=== PATIENT | male | born 1935 | race Caucasian/White ===

== ENCOUNTER → 2017-06-22 18:24 | Outpatient (CLI) | payer MEDICARE, SELFPAY ==
--- NOTE | 2017-06-22 15:00 | LES_PTH ---
PATIENT: RYAN FLOOD LOC: [facility] U#:[id number] AGE/SX: 89/M ROOM: RE06/22/[address]: Dr. Kostas Silverman MD : 1935 BED: DIS: SPEC #: [id number] RECD: 06/22/17 17:37 STATUS: ELVI KAREN #: [id number] MELISSA: 06/22/17 15:[address]: Kostas Silverman DEPT: SURGICAL PATHOLOGY RECD BY: Gilberto Posada Tissues: A - Skin of arm B - Skin of back, NOS Procedures: Surgery Specimen Level IV HEADER OPERATION: Right arm, suspicious tissue/lesion removal; suspicious back lesion removal PRE-OP DIAGNOSIS: Right arm, suspicious tissue/lesion; suspicious back lesion TISSUE SUBMITTED: A - Right arm lesion, B ? Back lesion MICROSCOPIC DIAGNOSIS A. Right arm lesion, excisional biopsy: Pigmented actinic keratosis with focal features of seborrheic keratosis. Solar elastosis. Negative for malignancy. B. Back lesion, excisional biopsy: Seborrheic keratosis with focal features of verrucous keratosis with superficial ulceration and associated inflammation. Negative for malignancy. ODESSA:reggie 06/24/17 MICROSCOPIC DESCRIPTION Slides are reviewed. GROSS DESCRIPTION A - Received in fixative is one container labeled with the patient's name and designated arm, right, lesion. The specimen consists of a piece of leyva-brown skin measuring 1 x 0.5 cm and up to 0.2 cm in thickness. The specimen is inked and submitted entirely in one cassette. It will be sectioned at the time of embedding. B - Received in fixative is one container labeled with the patient's name and designated back lesion. The specimen consists of a round piece of leyva-white skin measuring 0.5 cm in diameter and 0.2 cm in thickness. The specimen is inked and submitted entirely in one cassette. It will be bisected at the time of embedding. / ODESSA:reggie 06/23/17 TC:5 CPT: 59963 x2
== END ==
PROVIDERS: Family Provider Family Medicine; PCP Family Medicine; Visit Provider Family Medicine
DX: L98.9 Disorder of the skin and subcutaneous tissue, unspecified (principal)
CPT/HCPCS: 88305

== ENCOUNTER → 2017-08-25 11:27 | Outpatient (CLI) | payer MEDICARE, SELFPAY ==
[2017-08-25 12:57] LABS: AST(SGOT) 20 U/L (15-37); Alanine Aminotransfer ALT/SGPT 22 U/L (16-61); Albumin, Serum 3.6 g/dL (3.2-5.0); Alkaline Phosphatase 78 U/L (45-117); Bilirubin, Direct 0.17 mg/dL (0.00-0.30); Cholesterol 191 mg/dL (200); Globulin 3.7 g/dL (2.2-4.2); High Density Lipoprotein 30 mg/dL; Protein, Total 7.3 g/dL (6.4-8.2); Triglycerides 189 mg/dL; Very Low Density Lipoprotein 38 mg/dL (5-40)
== END ==
PROVIDERS: Family Provider Family Medicine; PCP Family Medicine; Visit Provider Internal Medicine Cardiovascular Disease
DX: I20.9 Angina pectoris, unspecified (principal); E78.5 Hyperlipidemia, unspecified
CPT/HCPCS: 36415; 80061; 80076

== ENCOUNTER → 2018-07-11 09:43 | Outpatient (CLI) | payer MEDICARE, SELFPAY ==
[2018-07-05 15:37] VITALS: BMI 29.7
[2018-07-11 12:33] LABS: AST(SGOT) 36 U/L (15-37); Alanine Aminotransfer ALT/SGPT 29 U/L (16-61); Albumin, Serum 3.8 g/dL (3.2-5.0); Alkaline Phosphatase 77 U/L (45-117); Anion Gap 12 (5-15); BUN 23 mg/dL (7-18); BUN/Creat Ratio 19.3 RATIO (10-20); Bilirubin, Direct 0.14 mg/dL (0.00-0.30); Calcium,Total 8.7 mg/dL (8.5-10.1); Chloride 99 mmol/L (98-107); Cholesterol 205 mg/dL (200); Creatinine, Serum 1.19 mg/dL (0.70-1.30); EST Glomerular Filtration Rate 62 mL/min (>60); Est Glom Filt Rate - Afr Amer 75 mL/min (>60); Globulin 3.9 g/dL (2.2-4.2); Glucose 154 mg/dL (74-106); High Density Lipoprotein 30 mg/dL; Potassium 3.3 mmol/L (3.5-5.1); Protein, Total 7.7 g/dL (6.4-8.2); Sodium Level 139 mmol/L (136-145); Thyroid Stim Hormone (TSH) 2.48 uIU/mL (0.358-3.74); Triglycerides 219 mg/dL; Very Low Density Lipoprotein 44 mg/dL (5-40)
== END ==
PROVIDERS: Family Provider Family Medicine; PCP Family Medicine; Referring Provider Internal Medicine Cardiovascular Disease; Visit Provider Internal Medicine Cardiovascular Disease
DX: Z00.00 Encounter for general adult medical examination without abnormal findings (principal); I10 Essential (primary) hypertension; E78.5 Hyperlipidemia, unspecified
CPT/HCPCS: 36415; 80048; 80061; 80076; 84443

== ENCOUNTER → 2019-06-25 08:35 | Outpatient (CLI) | payer MEDICARE, SELFPAY ==
[2019-01-04 11:11] VITALS: BMI 29.3
[2019-06-25 10:46] LABS: Anion Gap 7 (5-15); BUN 28 mg/dL (7-18); BUN/Creat Ratio 23.3 RATIO (10-20); Calcium,Total 8.9 mg/dL (8.5-10.1); Chloride 103 mmol/L (98-107); Cholesterol 189 mg/dL (200); EST Glomerular Filtration Rate 61 mL/min (>60); Est Glom Filt Rate - Afr Amer 74 mL/min (>60); Glucose 128 mg/dL (74-106); High Density Lipoprotein 30 mg/dL; PSA,Total - Annual Screen 0.11 ng/mL (0.00-4.00); Potassium 3.4 mmol/L (3.5-5.1); Sodium Level 139 mmol/L (136-145); Triglycerides 207 mg/dL; Very Low Density Lipoprotein 41 mg/dL (5-40)
== END ==
PROVIDERS: PCP Family Medicine; Referring Provider Family Medicine; Visit Provider Family Medicine
DX: Z00.00 Encounter for general adult medical examination without abnormal findings (principal); I10 Essential (primary) hypertension
CPT/HCPCS: 36415; 80048; 80061; 84153; G0103

== ENCOUNTER → 2019-12-18 09:32 | Outpatient (CLI) | payer MEDICARE, SELFPAY ==
[2019-01-04 11:11] VITALS: BMI 29.3
[2019-12-18 12:43] LABS: Anion Gap 5 (5-15); BUN 23 mg/dL (7-18); BUN/Creat Ratio 20.7 RATIO (10-20); Calcium,Total 8.9 mg/dL (8.5-10.1); Chloride 103 mmol/L (98-107); Creatinine, Serum 1.11 mg/dL (0.70-1.30); EST Glomerular Filtration Rate 67 mL/min (>60); Est Glom Filt Rate - Afr Amer 81 mL/min (>60); Glucose 129 mg/dL (74-106); Potassium 3.6 mmol/L (3.5-5.1); Sodium Level 139 mmol/L (136-145)
== END ==
PROVIDERS: PCP Family Medicine; Referring Provider Family Medicine; Visit Provider Family Medicine
DX: I10 Essential (primary) hypertension (principal)
CPT/HCPCS: 36415; 80048

== ENCOUNTER → 2020-06-19 12:15 | Outpatient (CLI) | payer MEDICARE, SELFPAY ==
[2020-02-01 09:50] VITALS: BMI 28.5
[2020-06-19 15:52] LABS: ALB/GLOB Ratio 1.1 RATIO (0.9-2.4); AST(SGOT) 21 U/L (15-37); Alanine Aminotransfer ALT/SGPT 23 U/L (16-61); Albumin, Serum 3.8 g/dL (3.2-5.0); Alkaline Phosphatase 74 U/L (45-117); Anion Gap 6 (5-15); BUN 24 mg/dL (7-18); BUN/Creat Ratio 20.7 RATIO (10-20); Calcium,Total 9.2 mg/dL (8.5-10.1); Chloride 103 mmol/L (98-107); Cholesterol 184 mg/dL (200); Creatinine, Serum 1.16 mg/dL (0.70-1.30); EST Glomerular Filtration Rate 64 mL/min (>60); Est Glom Filt Rate - Afr Amer 77 mL/min (>60); Globulin 3.5 g/dL (2.2-4.2); Glucose 111 mg/dL (74-106); High Density Lipoprotein 30 mg/dL; Potassium 3.5 mmol/L (3.5-5.1); Protein, Total 7.3 g/dL (6.4-8.2); Sodium Level 138 mmol/L (136-145); Triglycerides 201 mg/dL; Very Low Density Lipoprotein 40 mg/dL (5-40)
== END ==
PROVIDERS: PCP Family Medicine; Referring Provider Family Medicine; Visit Provider Family Medicine
DX: I10 Essential (primary) hypertension (principal)
CPT/HCPCS: 36415; 80053; 80061

== ENCOUNTER → 2020-12-15 11:35 | Outpatient (CLI) | payer MEDICARE, SELFPAY ==
[2020-02-01 09:50] VITALS: BMI 28.5
[2020-12-15 15:33] LABS: Anion Gap 6 (5-15); BUN 22 mg/dL (7-18); BUN/Creat Ratio 19.5 RATIO (10-20); Calcium,Total 9.3 mg/dL (8.5-10.1); Chloride 101 mmol/L (98-107); Cholesterol 177 mg/dL (200); Creatinine, Serum 1.13 mg/dL (0.70-1.30); EST Glomerular Filtration Rate 65 mL/min (>60); Est Glom Filt Rate - Afr Amer 79 mL/min (>60); Glucose 83 mg/dL (74-106); High Density Lipoprotein 27 mg/dL; Sodium Level 137 mmol/L (136-145); Triglycerides 253 mg/dL; Very Low Density Lipoprotein 51 mg/dL (5-40)
== END ==
PROVIDERS: PCP Family Medicine; Referring Provider Family Medicine; Visit Provider Family Medicine
DX: I10 Essential (primary) hypertension (principal)
CPT/HCPCS: 36415; 80048; 80061

== ENCOUNTER 2021-06-18 14:32 | Outpatient (CLI) | payer MEDICARE, SELFPAY ==
[2021-06-18 18:04] LABS: Anion Gap 6 (5-15); BUN 21 mg/dL (7-18); BUN/Creat Ratio 19.3 RATIO (10-20); Calcium,Total 8.9 mg/dL (8.5-10.1); Chloride 105 mmol/L (98-107); Creatinine, Serum 1.09 mg/dL (0.70-1.30); EST Glomerular Filtration Rate 68 mL/min (>60); Est Glom Filt Rate - Afr Amer 82 mL/min (>60); Glucose 100 mg/dL (74-106); Potassium 3.6 mmol/L (3.5-5.1); Sodium Level 138 mmol/L (136-145)
== END 2021-06-18 23:59 | disposition home or self-care (01) ==
LOC: MFPLAB 14:33
PROVIDERS: PCP Family Medicine; Referring Provider Family Medicine; Visit Provider Family Medicine
DX: I10 Essential (primary) hypertension (principal)
CPT/HCPCS: 36415; 80048

== ENCOUNTER → 2021-08-20 | Outpatient (CLI) | payer MEDICARE, SELFPAY ==
--- NOTE | 2021-08-20 09:32 | CDU_ITS ---
Reason For Study: bilateral bruit Rt. Velocities/BP Lt. Velocities/BP Prox CCA 61.7/9.5 cm/sec. Prox CCA 91.6/16.0 cm/sec. Mid CCA 56.5/12.1 cm/sec. Mid CCA 69.5/12.1 cm/sec. Dist CCA 56.5/10.8 cm/sec. Dist CCA 60.4/10.8 cm/sec. Prox ICA 59.1/14.7 cm/sec. Prox ICA 59.1/17.3 cm/sec. Mid ICA 56.5/17.3 cm/sec. Mid ICA 76.0/17.3 cm/sec. Dist ICA 59.1/17.3 cm/sec. Dist ICA 63.0/17.3 cm/sec. Rt. ICA/CCA = 1.0. Lt. ICA/CCA = 1.1. Prox ECA 98.2/6.9 cm/sec. Prox ECA 91.6/6.9 cm/sec. Rt. Vert. 38.2/9.5 cm/sec. Lt. Vert. 35.2/6.0 cm/sec. Right Extracranial There is homogeneous, smooth atherosclerotic plaque noted in the right common carotid artery. There is heterogeneous, irregular atherosclerotic plaque noted in the right internal carotid artery. There is heterogeneous, irregular atherosclerotic plaque noted in the right external carotid artery. Antegrade flow is noted in the right vertebral artery. Left Extracranial There is intimal thickening but no significant atherosclerotic plaque noted in the left common carotid artery. There is heterogeneous, irregular atherosclerotic plaque noted in the left internal carotid artery. There is heterogeneous, smooth atherosclerotic plaque noted in the left external carotid artery. Antegrade flow is noted in the left vertebral artery. Procedure Carotid Duplex 73960. This is a Carotid Duplex examination using B-mode, color flow and specral Doppler. The exam was diagnostic. Exam performed in department. VL/Carotid Duplex Ultrasound Interpretation Summary Irregular plaque at the proximal right internal carotid artery with less than 5 0% stenosis Less than 50% stenosis right external carotid artery Irregular plaque at the proximal left internal carotid artery with less than 50 % stenosis. Less than 50% stenosis left external carotid artery Patent antegrade vertebral arteries bilaterally Ordering Physician: Josseline Arroyo Performed By: Tariq Worthington RVT
== END | disposition home or self-care (01) ==
LOC: CVS 09:31
PROVIDERS: PCP Family Medicine; Referring Provider Physician Assistant Medical; Visit Provider Physician Assistant Medical
DX: R09.89 Other specified symptoms and signs involving the circulatory and respiratory systems (principal)
CPT/HCPCS: 93880

== ENCOUNTER → 2021-12-22 | Outpatient (CLI) | payer MEDICARE, SELFPAY ==
[2021-12-22 11:04] LABS: Anion Gap 7 (5-15); BUN 18 mg/dL (7-18); BUN/Creat Ratio 16.7 RATIO (10-20); Calcium,Total 8.7 mg/dL (8.5-10.1); Chloride 102 mmol/L (98-107); Cholesterol 186 mg/dL (200); Creatinine, Serum 1.08 mg/dL (0.70-1.30); EST Glomerular Filtration Rate 69 mL/min (>60); Est Glom Filt Rate - Afr Amer 83 mL/min (>60); Glucose 120 mg/dL (74-106); High Density Lipoprotein 30 mg/dL; Potassium 3.7 mmol/L (3.5-5.1); Sodium Level 137 mmol/L (136-145); Triglycerides 190 mg/dL; Very Low Density Lipoprotein 38 mg/dL (5-40)
== END | disposition home or self-care (01) ==
LOC: MFPLAB 09:08
PROVIDERS: PCP Family Medicine; Visit Provider Family Medicine
DX: I10 Essential (primary) hypertension (principal)
CPT/HCPCS: 36415; 80048; 80061

== ENCOUNTER → 2022-10-05 | Outpatient (CLI) | payer MEDICARE, SELFPAY ==
--- NOTE | 2022-10-05 11:46 | ART_ITS ---
Reason For Study: PAD Procedure A bilateral lower extremity continuous wave Doppler with analog waveform analysis,segmental pressures,and ankle brachial indexes with exercise. Left Segmental Pressures Left brachial= 120mmHg. Left posterior tibial artery = 139mmHg. Left dorsalis pedis artery = 136mmHg. Left digit = 94 mmHg. The left dorsalis pedis waveforms are triphasic. The left posterior tibial artery waveforms are triphasic. Right Segmental Pressures Right brachial= 112mmHg. Right posterior tibial artery = 125mmHg. Right dorsalis pedis artery = 121mmHg. Right digit = 59 mmHg. The right dorsalis pedis waveforms are triphasic. The right posterior tibial artery waveforms are biphasic. Indices The right ankle brachial index by the posterior tibial artery is 1.04. The right ankle brachial index by the dorsalis pedis is 1.01. The right digital-brachial index is .49. The right post exercise ankle brachial index is 1.07. The left ankle brachial index by the posterior tibial artery is 1.16. The left ankle brachial index by the dorsalis pedis is 1.13. The left digital-brachial index is .78. The left post exercise ankle brachial index is 1.35. VL/Lower Ext Art Exam w/ Exercise Interpretation Summary Biphasic and triphasic Doppler waveforms are noted at ankle level on the right. Triphasic Doppler waveforms are noted at ankle level on the left. Pulse-volume recordings appear diminished at digital level on the right, but satisfactory at all other levels bilaterally. Resting a nkle-brachial indices are normal bilaterally. The right digital-brachial index is moderately diminish ed. The left digital- brachial index is normal. The patient ambulated to tolerance on a treadmill wit h no incline for 2 minutes, following which ankle pressures augmented bilaterally, a normal physio logical response. Arterial flow appears normal at ankle level bilaterally, and at digital level o n the left. 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 Ordering Physician: Kostas Silverman Performed By: Tariq Worthington, RVT
== END | disposition home or self-care (01) ==
LOC: CVS 11:45
PROVIDERS: PCP Family Medicine; Referring Provider Family Medicine; Visit Provider Family Medicine
DX: I73.9 Peripheral vascular disease, unspecified (principal)
CPT/HCPCS: 93924

== ENCOUNTER → 2022-12-13 | Outpatient (CLI) | payer MEDICARE, SELFPAY ==
[2022-12-13 12:59] LABS: Anion Gap 6 (5-15); BUN 24 mg/dL (7-18); BUN/Creat Ratio 21.1 RATIO (10-20); Calcium,Total 9.5 mg/dL (8.5-10.1); Chloride 103 mmol/L (98-107); Cholesterol 170 mg/dL (200); Creatinine, Serum 1.14 mg/dL (0.70-1.30); EST Glomerular Filtration Rate 64 mL/min (>60); Est Glom Filt Rate - Afr Amer 78 mL/min (>60); Glucose 124 mg/dL (74-106); High Density Lipoprotein 31 mg/dL; Potassium 3.3 mmol/L (3.5-5.1); Sodium Level 138 mmol/L (136-145); Triglycerides 162 mg/dL; Very Low Density Lipoprotein 32 mg/dL (5-40)
== END | disposition home or self-care (01) ==
LOC: MFPLAB 11:12
PROVIDERS: PCP Family Medicine; Visit Provider Family Medicine
DX: I10 Essential (primary) hypertension (principal)
CPT/HCPCS: 36415; 80048; 80061

== ENCOUNTER 2023-06-09 09:44 | Emergency (ER) | payer MEDICARE, SELFPAY ==
[2023-06-09 09:45] VITALS: BP 139/76; PULSE 85; RESP 18; TEMP 35.7; O2SAT 93; BMI 28.3
--- NOTE | 2023-06-09 11:47 | RAD_ITS ---
STUDY: X-RAY - PELVIS AND LEFT HIP REASON FOR EXAM: Male, 87 years old. Left hip pain. No known injury. TECHNIQUE: 3 views of the pelvis and hip. COMPARISON: None. FINDINGS: There is a non-specific bowel gas pattern. There are calcified prostatic calculi. There is narrowing with cortical sclerosis and osteophyte formation of the sacroiliac joint consistent with degenerative osteoarthritic changes. Normal bilateral superior and inferior pubic rami. Normal pubic symphysis. Normal bilateral ischial tuberosities. Marked degree of joint space narrowing of the left hip joint with deformity of the left femoral head and sclerosis suggestive of avascular necrosis. There is superior migration of the left femoral head. 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 Electronically Signed: Bayron Orr MD at 12:50 EST ,
--- NOTE | 2023-06-09 11:47 | RAD_ITS ---
STUDY: X-RAY - LEFT KNEE REASON FOR EXAM: Male, 87 years old. Pain. No known injury. TECHNIQUE: 4 view(s) of the knee. COMPARISON: None. FINDINGS: Normal visualized distal femur. Normal visualized proximal tibia and fibula. Normal proximal tibiofibular articulation. There is mild degenerative arthrosis of the medial femorotibial compartment. Normal lateral femorotibial compartment. Normal patellofemoral articulation. Chondrocalcinosis of the medial and lateral menisci. There are atherosclerotic calcifications. RAD/Knee 4 or More Views IMPRESSION: Degenerative arthrosis. Chondrocalcinosis of the medial and lateral menisci. Electronically Signed: Bayron Orr MD at 12:54 EST ,
--- NOTE | 2023-06-09 11:48 | ED.VIS.BACK ---
HPI History of Present Illness Chief Complaint: Back Narrative Narrative: 87-year-old male presenting with lower back pain, left hip pain. He is diagnosed with sciatica. He sees pain management (Dr. Ponce) currently that he had an injection recently and points to the left inguinal area. He states after his initial shot was and that he had a shot in left lower back. He states he had a few days of pain relief with both but now his pain is back. He states he was doing well this morning and then used his walker to get up and go to the living room and he fell asleep. When he woke up he had a lot of pain which is slowly kind of improved. He has a wheelchair at home when he needs it. He uses a walker most of the time. No falls or trauma. He states he initially saw a chiropractor for this and states that he thinks this is slipped disc for him. He states that after several treatments he did not think it was working anymore so he was referred to pain management for this. Patient states that when he walks he can feel a lot of clicking and popping in his left hip and left knee. No numbness or tingling. He has not any falls. [facility] Medical History (Updated 06/09/23 @ 13:[address] Jeffy Mon, ) Angina pectoris Atherosclerotic heart disease of [place] coronary artery without angina pectoris Body mass index (bmi) 31.0-31.9, adult Essential hypertension History of kidney stones History of prostate cancer Hyperlipidemia Hypertension Nonrheumatic mitral valve regurgitation Right bundle branch block Home Medications nitroglycerin 0.4 mg sublingual tablet 0.4 mg sublingual Q5M PRN chest pain #90 tabs 07/05/18 [Rx Last Taken Unknown] hydrochlorothiazide 25 mg tablet 25 mg PO DAILY #90 tabs 11/17/22 [Rx Last Taken Unknown] metoprolol succinate 50 mg tablet,extended release 24 hr 50 mg PO DAILY #90 tabs 11/23/22 [Rx Last Taken Unknown] meloxicam 7.5 mg tablet 7.5 mg PO DAILY 01/17/23 [History Last Taken Unknown] potassium chloride 10 mEq capsule,extended release 10 meq PO DAILY 01/17/23 [History Last Taken Unknown] clopidogrel 75 mg tablet See Rx Instructions .Route .COMPLEX #90 tabs 02/25/23 [Rx Last Taken Unknown] isosorbide mononitrate 120 mg tablet,extended release 24 hr See Rx Instructions .Route .COMPLEX #180 tabs 05/31/23 [Rx Last Taken Unknown] hydrocodone-acetaminophen 5-325mg 5mg-325mg 1 tab PO Q6H PRN pain 3 days #12 TABLETS 06/09/23 [Rx Last Taken Unknown] Allergy/AdvReac Type Severity Reaction Status Date / Time Penicillins Allergy Hives Verified 06/09/23 09:50 Zzcymat-SHL-CvL Reductase Allergy Pain in Verified 06/09/23 09:50 Inhibitor joints [Ivwjvqu-Uiv-Doc Reductase Inhibitor] latex AdvReac Severe Pruitis & Verified 06/09/23 09:50 Rash CASSIE Inhibitors AdvReac Pain in Verified 06/09/23 09:50 joints Family History Father CAD (coronary artery disease) Hx of CABG Mother CVA (cerebral vascular accident) Brother Cancer LUNG CANCER Surgical History History of tonsillectomy Postsurgical percutaneous transluminal coronary angioplasty (PTCA) status Presence of stent in coronary artery (~06/2010) Social History Smoking Status: Never smoker alcohol intake: current ROS ROS ED Constitutional Constitutional ED: Denies chills, fever(s) or sweats Eyes Eyes: Denies blurry vision or change in vision ENT ENT ED: Denies ear pain or sore throat Cardiovascular Cardiovascular: Denies chest pain, palpitations or racing heartbeat Respiratory/Chest Respiratory/Chest: Denies cough, dyspnea or sputum Gastrointestinal Gastrointestinal: Denies abdominal pain, constipation, diarrhea, nausea or vomiting Genitourinary Genitourinary ED: Denies dysuria, hematuria or urinary frequency Musculoskeletal Musculoskeletal: Reports back pain and other Details: Left hip pain, left knee pain ; Denies arthralgias, myalgias or neck pain Integumentary Denies abscess, Abrasions or rash Neurologic Neurologic: Denies headache(s), paresthesias or weakness Psychiatric Psychiatric: Denies anxiety, depression, suicidal ideation or suicidal thoughts Endocrine Endocrinology: Denies polydipsia or polyuria EXAM Physical Exam Const Vital Signs: 06/09/23 09:45 Temperature 96.3 F L Temperature Source Temporal Pulse Rate 85 Respiratory Rate 18 Blood Pressure 139/76 H Blood Pressure Mean 97 Pulse Ox 93 Oxygen Delivery Method Room Air Positive well nourished General Appearance ED: NAD Eyes PERRL and EOMs intact bilaterally Resp normal respiratory effort Cardio regular rate and regular rhythm GI normal to inspection, nondistended, normoactive bowel sounds Back/Spine Back/Spine Narrative: Tenderness to palpation left lumbar paraspinal musculature to the left gluteal region. Extremity Extremity Narrative: Patient able to rise from seated position using walker and ambulate to the bed. He has difficulty sitting and bring his legs up to the bed. Once supine he is able to flex his hip off the bed but cannot hold it for more than a few seconds. He is able to extend his knee and hold it without difficulty. Neurovascular intact throughout bilateral lower extremities. Knee no ligamentous laxity. No patellar tenderness. Neuro oriented x3 Psych mental status grossly normal Skin no rashes or lesions noted MDM MDM MDM Narrative Medical decision making narrative: Patient with back pain, left hip pain, left knee pain. He states it was worse earlier this morning. This appears to be a chronic issue but is exacerbated currently. Patient sees pain management. Patient given a shot of Toradol. Will obtain lumbar spine, left hip, left knee images. Differential includes lumbar strain, sciatica, degenerative disc disease, arthritis. X-rays of the left hip, left knee, lumbar spine were all obtained and on my interpretation the lumbar spine and the left knee show degenerative changes. The left hip shows severe degenerative changes of the femoral head suggesting avascular necrosis. Discussed this with Dr. Ponce who requested that I give him some pain medication to take home. I wrote him a prescription for [place]. He was able to ambulate under his own strength although he does require walker. Patient will have a follow-up with orthopedics and this will be managed by pain management. Patient was discharged home in stable condition. I did get a call from his pharmacy stating that he was prescribed hydrocodone yesterday which was picked up. They cannot fill the prescription I gave. Patient is to follow-up with pain management and orthopedics as scheduled. Impression: 1. Degenerative left hip 2. Degenerative disc disease 3. Degenerative left knee Lab Data Attestation: I reviewed the patient's lab results. Radiography Diagnostic Testing: Clinical Impression(s) from Imaging Studies Hip/Pelvis X-Ray 06/09/23 11:47 IMPRESSION: Marked degree of the degenerative changes of the left hip joint with deformity of the left femoral head with findings suggestive of avascular necrosis with flattening of the head. Electronically Signed: Bayron Orr MD at 12:50 EST , Knee X-Ray 06/09/23 11:47 IMPRESSION: Degenerative arthrosis. Chondrocalcinosis of the medial and lateral menisci. Electronically Signed: Bayron Orr MD at 12:54 EST , Lumbar Spine X-Ray 06/09/23 12:15 IMPRESSION: Degenerative changes of the spine, as detailed above. Electronically Signed: Bayron Orr MD at 12:53 EST , Discharge Plan Triage Chief Complaint: Back ED Provider: Jeffy Mon Dx/Rx/DC Orders Clinical Impression: Degenerative joint disease of left hip Instructions: ED Degenerative Disk Disease, ED Osteoarthritis Prescriptions: New hydrocodone-acetaminophen 5-325 mg tablet 1 tab PO Q6H PRN (Reason: pain) 3 Days Qty: 12 0RF No Action nitroglycerin 0.4 mg tablet, sublingual 0.4 mg SUBLINGUAL Q5M PRN (Reason: chest pain) Qty: 90 6RF meloxicam 7.5 mg tablet 7.5 mg PO DAILY potassium chloride 10 mEq capsule, extended release 10 meq PO DAILY hydrochlorothiazide 25 mg tablet 25 mg PO DAILY Qty: 90 4RF metoprolol succinate 50 mg tablet extended release 24 hr 50 mg PO DAILY Qty: 90 3RF clopidogrel 75 mg tablet See Rx Instructions .ROUTE .COMPLEX Qty: 90 3RF Dose Instruction: TAKE 1 TABLET DAILY Rx Instructions: TAKE 1 TABLET DAILY isosorbide mononitrate 120 mg tablet extended release 24 hr See Rx Instructions .ROUTE .COMPLEX Qty: 180 3RF Dose Instruction: TAKE 1 TABLET EVERY MORNING Rx Instructions: TAKE 1 TABLET EVERY MORNING Primary Care Provider: Kostas Silverman Referrals: Katlin Ponce MD [Med Staff - Active Staff] - As soon as possible Kostas Silverman MD [Primary Care Provider] - Disposition Disposition: Home, Self Care Discharge Date/Time: 06/09/23 13:55
[2023-06-09] MEDS: Ketorolac 15 MG/ML Vial IM (11:59)
--- NOTE | 2023-06-09 12:15 | RAD_ITS ---
STUDY: X-RAY - LUMBAR SPINE REASON FOR EXAM: Male, 87 years old. Pain TECHNIQUE: 2 view(s) of the lumbar spine were obtained. COMPARISON: None FINDINGS: Normal lumbar lordosis. There is no substantial scoliosis. There is a normal alignment of the vertebrae. There is multilevel endplate spondylosis of the lumbar vertebrae. There is multi-level degenerative disc disease with multi-level disc space narrowing. Facet joint osteoarthritis. Deformity of the left femoral head with marked degree of right joint space narrowing. There is atherosclerotic calcification of the abdominal aorta without a demonstrated aneurysm. RAD/Lumbar Spine 2 or 3 Views IMPRESSION: Degenerative changes of the spine, as detailed above. Electronically Signed: Bayron Orr MD at 12:53 EST ,
== END 2023-06-09 13:55 | disposition home or self-care (01) ==
PROVIDERS: Emergency Provider Student in an Organized Health Care Education/Training Program; PCP Family Medicine; Visit Provider Student in an Organized Health Care Education/Training Program
DX: M16.12 Unilateral primary osteoarthritis, left hip (principal); M17.12 Unilateral primary osteoarthritis, left knee; M47.816 Spondylosis without myelopathy or radiculopathy, lumbar region; M54.50 Low back pain, unspecified; I25.10 Atherosclerotic heart disease of native coronary artery without angina pectoris; I10 Essential (primary) hypertension; E78.5 Hyperlipidemia, unspecified; Z79.02 Long term (current) use of antithrombotics/antiplatelets; Z79.899 Other long term (current) drug therapy; Z95.5 Presence of coronary angioplasty implant and graft
CPT/HCPCS: 72100; 73502; 73564; 96372; 99282